=== PATIENT | male | born 1980 | race American Indian/Alaskan Native ===

== ENCOUNTER 2017-08-14 15:42 | Emergency (ER) | payer SELFPAY ==
[2017-08-14] MEDS ORDERED: BOOSTRIX IM ONE (16:55)
[2017-08-14] MEDS ORDERED: ULTRAM PO ONE (16:55)
[2017-08-14] MEDS ORDERED: MARCAINE 0.5% INFILTRATI ONE (16:58)
--- NOTE | 2017-08-14 17:00 | Emergency Department Report ---
ED Laceration HPI - HPI Chief Complaint: Wound/Laceration Stated Complaint: LACERATION TO RIGHT HAND Time Seen by Provider: 08/14/17 16:17 Occurred When: Today Location: Upper Extremity Tetanus Status: Not up to Date Laceration Symptoms: Yes Pain, No Foreign Body Sensation, No Numbness, No Weakness Other History: This is a 37-year-old male nontoxic, well nourished in appearance , no acute signs of distress presents to the ED with c/o of right finger laceration that occurred about 2 hours ago. They stated he was playing with a knife which cause a laceration. Patient is up to date with tetanus. Patient denies any numbness, tingling, fever, chills, nausea, vomiting, chest pain shortness breath. ED Review of Systems ROS: Stated complaint: LACERATION TO RIGHT HAND Other details as noted in HPI Constitutional: denies: chills, fever Eyes: denies: eye pain, eye discharge, vision change ENT: denies: ear pain, throat pain Respiratory: denies: cough, shortness of breath, wheezing Cardiovascular: denies: chest pain, palpitations Endocrine: no symptoms reported Gastrointestinal: denies: abdominal pain, nausea, diarrhea Genitourinary: denies: urgency, dysuria Musculoskeletal: denies: back pain, joint swelling, arthralgia Skin: denies: rash, lesions Neurological: denies: headache, weakness, paresthesias Psychiatric: denies: anxiety, depression Hematological/Lymphatic: denies: easy bleeding, easy bruising ED Past Medical Hx - Past Medical History Previous Medical History?: No - Social History Smoking Status: Never Smoker Substance Use Type: Marijuana - Medications Home Medications: Home Medications Medication Instructions Recorded Confirmed Last Taken Type Sulfamethoxazole/Trimethoprim 1 each PO BID #14 tablet 08/14/17 Unknown Rx [Bactrim DS TAB] traMADol [Ultram] 50 mg PO Q6HR PRN #12 tablet 08/14/17 Unknown Rx Laceration Physical Exam - Exam General: Vital signs noted. No distress. Alert and acting appropriately. GENERAL: The patient is a well-developed, well-nourished in no apparent distress. Patient is alert and acting appropriately for age. Alert and oriented 3, no apparent distress, normal gait, atraumatic. HEENT: Head is normocephalic and atraumatic. PERRL, Extraocular muscles are intact. Pupils are equal, round, and reactive to light and accommodation. Nares appeared normal. Mouth is well hydrated and without lesions. Mucous membranes are moist. Posterior pharynx clear of any exudate or lesions. Mouth is well hydrated and without lesions. Tonsils not erythematous or swollen. Uvula midline. Tongue elevated. Mucous members are moist. Posterior pharynx clear, no exudate or lesions. Patent airways. NECK: Supple. No carotid bruits. No lymphadenopathy or thyromegaly.nontender. No meningitic signs are noted. LUNGS: Clear to auscultation. Non labor breathing. No intercostal retractions. Symmetrical with respiration, no wheezing, no rales, or crackles. HEART: Regular rate and rhythm without murmur, rubs or gallops. No reproducible. S1, S2 present, regular rate and rhythm without murmur, no rubs, no gallops. ABDOMEN: Soft, nontender, and nondistended. Positive bowel sounds. No hepatosplenomegaly was noted. No guarding or rebound tenderness, negative epigastric bruit. Negative psoas sign, negative pretty sign, negative McBurneys sign EXTREMITIES: Without any cyanosis, clubbing, rash, lesions or edema. Peripheral pulses intact. Capillary refill less than 2 seconds. Full range of motion bilaterally. NEUROLOGIC: Cranial nerves II through XII are grossly intact. Alert and oriented x 3. Normal gait. Symmetrical strength and sensation. Reflexes 2+ throughout. Cerebellar testing normal. GCS score of 15. PSYCHIATRIC: Normal affect with no suicidal or homicidal ideations. Skin: 2 cm superficial laceration in between the fourth and fifth digit. Bleeding under control. No pus or drainage noted. No swelling. Wound Length (cm): 2 Laceration Location: Upper Extremity Laceration Exam: Yes Normal Distal CMS, No Foreign Body, No Exposed Tendon, Vessel, or Nerve, No Tendon Injury ED Course Vital Signs 08/14/17 15:48 Temperature 98.8 F Pulse Rate 88 Blood Pressure 134/85 O2 Sat by Pulse 96 Oximetry - Reevaluation(s) Reevaluation #1: 08/14/17 17:01 Patient is speaking in full sentences with no signs of distress noted. - Laceration /Wound Repair Right Finger Wound Location: upper extremity (in between fourth and fifth digit) Wound Length (cm): 2 Wound's Depth, Shape: superficial, linear Wound Explored: clean Irrigated w/ Saline (ccs): 500 Betadine Prep?: Yes Anesthesia: 0.5% Sensorcaine Volume Anesthetic (ccs): 3 Wound Repaired With: sutures Suture Size/Type: 5:0, proline Number of Sutures: 2 Layer Closure?: No Sterile Dressing Applied?: Yes Progress: Under sterile field, I used Betadine to clean the area. I then used 40 mL of normal saline to flush the area. I then used 0.5% Marcaine plain and injected 3 mL to the wound. I then used a 5-0 Prolene to suture the laceration. Number of stitches 2. I then applied a sterile 4 x 4 with tape. Minimal bleeding noted but is under control. Patient tolerated procedure well with no signs of distress. ED Medical Decision Making - Medical Decision Making This is a 37-year-old male a/o x3 that presents with laceration. Patient is stable and was examined by me. Laceration has successfully been sutured and patient was instructed to return in 10 days for suture removal. Patient tolerated procedure well. Patient was instructed not to operate any machinery after discharge due to drowiness of ultram as patient stated his girlfriend which is at bedside will drive the patient home. Xray within normal limits and dictated by radiologist. Patient received Tetanus booster in the eD. Patient is discharged with Bactrim and Ultram for pain. Patient was instructed and educated on proper wound care. Patient was also instructed to Follow-up with a primary care doctor in 3-5 days or if symptoms worsen and continue return to emergency room as soon as possible. At time of discharge, the patient does not seem toxic or ill in appearance. No acute signs of distress noted. Patient agrees to discharge treatment plan of care. No further questions noted by the patient. Critical care attestation.: If time is entered above; I have spent that time in minutes in the direct care of this critically ill patient, excluding procedure time. ED Disposition Clinical Impression: Laceration Disposition: DC-01 TO HOME OR SELFCARE Is pt being admited?: No Does the pt Need Aspirin: No Condition: Stable Instructions: Laceration (ED), Suture Care (ED), Sulfamethoxazole/Trimethoprim (By mouth), Tramadol (By mouth) Additional Instructions: Follow-up with a primary care doctor in 3-5 days or if symptoms worsen and continue return to emergency room as soon as possible. Return in 10 days for suture removal. Do not operate any machinery taking Ultram due to drowsiness. Prescriptions: Sulfamethoxazole/Trimethoprim [Bactrim DS TAB] 1 each PO BID #14 tablet traMADol [Ultram] 50 mg PO Q6HR PRN #12 tablet PRN Reason: Pain Referrals: PRIMARY CARE, [Primary Care Provider] - 3-5 Days BETSY CAMPBELL MD [Staff Physician] - 3-5 Days [facility] [place] [Outside] - 3-5 Days [facility] [Outside] - 3-5 Days Forms: Work/School Release Form(ED)
--- NOTE | 2017-08-14 17:42 | XRay Report ---
FINAL REPORT EXAM: XR HAND 3+V RT HISTORY: laceration between the 4th and 5th digits of the right hand TECHNIQUE: AP, lateral, and oblique views of the right hand PRIORS: None. FINDINGS: There is no evidence for acute fracture or dislocation. No soft tissue swelling or radiopaque foreign bodies are seen. Bony mineralization is normal and joint spaces are maintained. IMPRESSION: No acute bony or soft tissue abnormality noted.
[2017-08-14 17:57] VITALS: BP 121/72
== END 2017-08-14 17:56 | disposition home or self-care (01) ==
LOC: ED 15:42
DX: S61.411A Laceration without foreign body of right hand, initial encounter (principal); W26.0XXA Contact with knife, initial encounter; Y93.89 Activity, other specified; Y92.89 Other specified places as the place of occurrence of the external cause; Y99.8 Other external cause status
CPT/HCPCS: 90471; 90715; 99283